=== PATIENT | female | born 1950 | race Caucasian/White ===

== ENCOUNTER → 2017-06-22 | Outpatient (CLI) | payer MEDICARE, OTHER ==
[~2017-06-22] MED LIST: ALBUTEROL2.5 MG/NEB IN; ALPRAZOLAM0.5 M3 PO; B12 INJ.,1000 MCG/M IM; CALCIUM 500500 M1 PO; CLARITIN 10MG T10 MG PO; CORTISPORIN (GE10 M2 OT; ESTRACE0.5 MG OR; FIORICET 325 MG1 TAB PO; FLONASE 50 MCG16 GM; HEALTH CARE AM600 MG PO; IPRATROPIUM 2.2.5 ML IH; KEFLEX 500MG.500 MG PO; LEVAQUIN250 M1 PO; LEVAQUIN500 MG PO; LIPITOR40 MG PO; MECLIZINE12.5 MG PO; MEDROL 4MG. DOSE4 MG PO; METOPIRONE250 MG PO; METOPROLOL 25 M25 MG PO; METOPROLOL TAR100 MG PO; MONTELUKAST SOD10 MG PO; OMEPRAZOLE20 MG PO; PHENERGAN 25MG.25 M1 PO; PHENERGAN VC S473 ML PO; PREDNISONE 20MG20 MG PO; PREMARIN2.5 MG PO; RESTASIS OT; SYMBICORT1 AE1 IH; SYSTANE 0.4%-0.1 SOL OP; TESSALON PERLE100 MG PO; TRAZODONE HCL50 MG PO; VITAMIN D PO; VITAMIN E 400400 IU; VITAMIN PO; XANAX 0.5MG TA0.5 MG PO; [UNRECOGNIZED DRUG - REMARK] PO
--- NOTE | 2017-06-22 13:14 | RADIOLOGY REPORT PS360 ---
BONE DENSITOMETRY(HIP:LT SPINE HISTORY: POST MENOPAUSAL ORDERING PHYSICIAN: Isak Cordero MD PATIENT AGE: 66 years COMPARISON: None FINDINGS: The BMD measured at the L1-L4 level is 0.835 g/sq cm with a T score of -2.9. This is considered osteoporotic according to the World Health Organization criteria. Fracture risk is high. Pharmacological treatment if not are prescribed should be started. Recommend follow-up exam in one year to monitor response to therapy. IMPRESSION: Osteoporosis with high fracture risk
--- NOTE | 2017-06-28 11:03 | RADIOLOGY REPORT PS360 ---
DIG MAMM-SCREEN [facility]MAN W/CAD CAD Screening ORDERING PHYSICIAN : Isak Cordero MD PATIENT AGE: 66 years GENDER: Female and 2012 COMPARISON: Previous mammograms: . January; August 2012 & 2010 INDICATION: Routine screening 67-year-old. Takes estrogen. No new complaints. Noncontributory family history.......... TECHNIQUE: Standard CC and MLO images were obtained. R2 CAD reviewed. FINDINGS: Mild/ Moderate fibroglandular elements bilaterally. Breast bilaterally with no dominant mass nor suspicious occasions either breast . No architectural distortion. No significant new findings. Bilateral follow-up in one year adequate And no significant change since prior studies.. Mild asymmetry appears reasonably stable: IMPRESSION: No significant new findings Bilateral follow-up in one year recommended. Mild/moderate density breast BI-RADS CATEGORY: 2_Benign RECOMMENDED FOLLOWUP: 12M 12 MONTH FOLLOW-UP (A letter has been sent to the patient regarding results of the study.)
== END ==
LOC: RAD 10:25
DX: Z12.31 Encounter for screening mammogram for malignant neoplasm of breast (principal); Z78.0 Asymptomatic menopausal state; Z13.820 Encounter for screening for osteoporosis
CPT/HCPCS: G0202

== ENCOUNTER → 2017-08-07 | Outpatient (CLI) | payer MEDICARE, OTHER ==
[~2017-08-07] MED LIST changes: +PAIN RELIEF325 MG PO; +SUPER B COMPLEX1 CAP PO
--- NOTE | 2017-08-08 05:09 | RADIOLOGY REPORT PS360 ---
MRI-BRAIN W/O HISTORY: Severe headache, posttraumatic headache with dizziness FALL, INITAL ENCOUNTER, ACUTE POST TRAUMATIC HEADACHE ORDERING PHYSICIAN: Salomon Nassar MD PATIENT AGE: 66 years COMPARISON: CT scan of 04/07/2017 TECHNIQUE: Standard multiplanar multiecho sequences are performed without contrast. FINDINGS: No midline shift, mass effect, intracranial hemorrhage, or hydrocephalus is evident. Scattered perivascular dilated spaces are present in the basal ganglia and temporal lobes. There is no evidence of acute infarction. There are few scattered T2 white matter hyperintensities in the periventricular and subcortical region which are nonspecific. No abnormal restricted diffusion. The cerebellopontine angles, cerebellum, and brainstem are unremarkable. No obvious pituitary mass. No mastoid effusion or sinus air-fluid level. IMPRESSION: 1. No acute intracranial findings. 2. Nonspecific scattered T2 white matter hyperintensities which may be due to ischemic gliotic change from microvascular disease. Migraine headache is included in the differential diagnosis.
== END ==
LOC: RAD 12:52
DX: G44.319 Acute post-traumatic headache, not intractable (principal); W19.XXXA Unspecified fall, initial encounter

== ENCOUNTER 2017-08-10 10:55 | Outpatient (CLI) | payer MEDICARE, OTHER ==
[~2017-08-10 10:55] MED LIST changes: -PAIN RELIEF325 MG PO; -SUPER B COMPLEX1 CAP PO
[2017-08-10 11:22] VITALS: BP 141/51
[2017-08-10] MEDS ORDERED: PAIN RELIEF325 MG PO (14:54)
[2017-08-10] MEDS ORDERED: SUPER B COMPLEX1 CAP PO (14:54)
== END 2017-08-10 11:45 | disposition home or self-care (01) ==
LOC: COP 10:55
DX: M81.0 Age-related osteoporosis without current pathological fracture (principal)
CPT/HCPCS: J0897